=== PATIENT | female | born 1950 | race Two or more races ===

== ENCOUNTER 2022-11-21 09:27 | Outpatient (CLI) | payer MEDICARE ==
--- NOTE | 2022-11-21 10:33 | XRAY Report ---
PROCEDURE: Chest 2 View X-Ray INDICATIONS: EXPIRATORY WHEEZING TECHNIQUE: 2 views of the chest were acquired. COMPARISON: None. FINDINGS: Surgical changes and devices: None. Lungs and pleura: No pleural effusions or pneumothorax. Lungs are clear. Mediastinum: Mediastinal contours appear normal. Heart size is normal. Bones and chest wall: No suspicious bony lesions. Overlying soft tissues appear unremarkable. IMPRESSION: No acute cardiopulmonary process. Reviewed by: Phillip Krishnamurthy MD on 11/21/2022 10:31 AM PDT Approved by: Phillip Krishnamurthy MD on 11/21/2022 10:31 AM PDT Station ID: [id number]
== END 2022-11-21 09:28 | disposition home or self-care (01) ==
LOC: DI 09:27
PROVIDERS: ATTEND Registered Nurse
DX: R06.2 Wheezing (principal); R03.0 Elevated blood-pressure reading, without diagnosis of hypertension; R63.0 Anorexia; R42 Dizziness and giddiness